=== PATIENT | female | born 2000 | race Caucasian/White ===

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

== ENCOUNTER 2020-05-03 03:06 | Emergency (ER) | payer BC ==
--- NOTE | 2020-05-03 04:45 | ED ---
Arrhythmia/Palpitations HPI - General Chief Complaint: Arrhythmia/Palpitations Stated Complaint: anxiety Time Seen by Provider: 05/03/20 03:23 Source: patient, family Mode of arrival: ambulatory Limitations: no limitations - History of Present Illness Initial Comments: Gricelda is a very pleasant 19-year-old female who comes to the ER with her mother today for evaluation of palpitations. Patient reports that on the night of the she was at a friend's house watching TV when she suddenly felt palpitations and began breathing really rapidly. She states that her hands became numb and tingly her abdomen began to cramp. She states she went home and she felt much better. She states that during the day she was doing well but this evening she woke up and felt like her heart was racing again and she was hyperventilating. Her mom decided to bring her to the ER. Mom states that she has a history of paroxysmal atrial fibrillation and wanted to make sure he wasn't having a dysrhythmia. 3 has no significant medical history no psychiatric history she states that she is home from college right now awaiting to find out if she'll be going back in t he fall. The report any significant social or emotional stressors aside from [place] virus stressing out everybody. She denies any drug use. Denies any possibility of . - Related Data Home Medications Medication Instructions Recorded Confirmed Budesonide/Formoterol Fumarate 2 puff INHALATION RT-DAILY 05/26/19 05/03/20 [Symbicort 160-4.5 Mcg Inhaler] Albuterol Sulfate [Ventolin HFA] 1 - 2 puff INHALATION RT-Q6H PRN 05/03/20 05/03/20 Ocella 1 tab PO HS 05/03/20 05/03/20 Allergies Allergy/AdvReac Type Severity Reaction Status Date / Time No Known Allergies Allergy Verified 05/03/20 06:43 Review of Systems ROS Statement: Those systems with pertinent positive or pertinent negative responses have been documented in the HPI. ROS Other: All systems not noted in ROS Statement are negative. Past Medical History Past Medical History: Asthma, Eye Disorder Additional Past Medical History / Comment(s): pt has history of asthma and uses advair diskus at home prn. has not used in 1 week. 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 no complications. pt has broken her growth plate on 2 separate occasions on rt leg casted only. 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 no complications. tolerated anesthesia w/o complications Past Anesthesia/Blood Transfusion Reactions: No Reported Reaction Past Psychological History: No Psychological Hx Reported Smoking Status: Never smoker Past Alcohol Use History: Occasional Past Drug Use History: None Reported - Past Family History Father Family Medical History: Diabetes Mellitus Additional Family Medical History / Comment(s): paternal grandmother and paternal uncles x 2 also have diabetes. paternal grandfather had lung cancer, maternal grandmother has hx of depression General Exam - General Exam Comments Initial Comments: Physical Exam GENERAL: Patient is well-developed and well-nourished. Patient is nontoxic and well- hydrated and is in no distress. HENT: Normocephalic, Atraumatic. EYES: PERRL, EOMI PULMONARY: Unlabored respirations. No audible rales rhonchi or wheezing was noted. CARDIOVASCULAR: There is a regular rate and rhythm without any murmurs gallops or rubs. ABDOMEN: Soft and nontender with normal bowel sounds. SKIN: Skin is clear with no lesions or rashes and otherwise unremarkable. : Deferred NEUROLOGIC: Patient is alert and oriented x3. Moving all extremities spontaneously MUSCULOSKELETAL: Normal extremities with adequate strength and full range of motion. No lower extremity swelling or edema. No calf tenderness. PSYCHIATRIC: Normal psychiatric evaluation. Limitations: no limitations Course Vital Signs 05/03/20 05/03/20 05/03/20 03:08 04:05 05:18 Temperature 98.1 F Pulse Rate 107 H 86 82 Respiratory 18 14 Rate Blood Pressure 150/87 O2 Sat by Pulse 98 Oximetry 05/03/20 06:23 Temperature 97.5 F L Pulse Rate 102 H Respiratory 14 Rate Blood Pressure 132/91 O2 Sat by Pulse 98 Oximetry EKG Findings - EKG Comments: EKG Findings:: EKG was obtained due to a complaint of palpitations, EKG was obtained at 3:27 AM, rate is 87 rhythm is sinus there is a normal axis, there are normal intervals, DE 134, QRS 84, QTC is 445 there are no acute ST elevation s or depressions no evidence of acute ischemia, infarction or arrhythmia. Medical Decision Making - Medical Decision Making The patient was seen and evaluated history is obtained from patient and mother Patient had episode of palpitations and hyperventilation yesterday sound like she had symptomatic hyperventilation with carpopedal spasms that resolved after calming herself down Patient reported a second episode today that was not as severe EKG at triage was normal sinus rhythm no acute findings Given mother's history and the patient's concern labs were obtained including a d-dimer TSH Labs resulted no abnormalities patient is rested comfortably throughout her stay in the emergency department is comfortable with plan for discharge home c ontinued outpatient follow-up - Lab Data Result diagrams: 05/03/20 05:17 05/03/20 05:17 Lab Results 05/03/20 05/03/20 05/03/20 Range/Units 05:17 05:17 05:17 WBC 9.3 (4.0-11.0) k/uL RBC 4.32 (3.80-5.40) m/uL Hgb 13.2 (11.4-16.0) gm/dL Hct 38.8 (34.0-46.0) % MCV 90.0 (80.0-100.0) fL MCH 30.6 (25.0-35.0) pg MCHC 34.0 (31.0-37.0) g/dL RDW 12.7 (11.5-15.5) % Plt Count 302 (150-450) k/uL Neutrophils % 69 % Lymphocytes % 21 % Monocytes % 5 % Eosinophils % 3 % Basophils % 1 % Neutrophils # 6.5 (1.3-7.7) k/uL Lymphocytes # 1.9 (1.0-4.8) k/uL Monocytes # 0.5 (0-1.0) k/uL Eosinophils # 0.3 (0-0.7) k/uL Basophils # 0.0 (0-0.2) k/uL D-Dimer 0.19 (<0.60) mg/L FEU Sodium 137 (137-145) mmol/L Potassium 3.5 (3.5-5.1) mmol/L Chloride 107 (98-107) mmol/L Carbon Dioxide 20 L (22-30) mmol/L Anion Gap 10 mmol/L BUN 6 L (7-17) mg/dL Creatinine 0.71 (0.52-1.04) mg/dL Est GFR (CKD-EPI)AfAm >90 (>60 ml/min/1.73 sqM) Est GFR (CKD-EPI)NonAf >90 (>60 ml/min/1.73 sqM) Glucose 101 H (74-99) mg/dL Calcium 9.3 (8.4-10.2) mg/dL Magnesium 1.8 (1.6-2.3) mg/dL Total Bilirubin 0.4 (0.2-1.3) mg/dL AST 18 (14-36) U/L ALT 9 (4-34) U/L Alkaline Phosphatase 75 (38-126) U/L Total Protein 6.7 (6.3-8.2) g/dL Albumin 3.7 (3.5-5.0) g/dL TSH 2.730 (0.465-4.680) mIU/L Urine HCG, Qual (Not Detectd) 05/03/20 Range/Units 05:18 WBC (4.0-11.0) k/uL RBC (3.80-5.40) m/uL Hgb (11.4-16.0) gm/dL Hct (34.0-46.0) % MCV (80.0-100.0) fL MCH (25.0-35.0) pg MCHC (31.0-37.0) g/dL RDW (11.5-15.5) % Plt Count (150-450) k/uL Neutrophils % % Lymphocytes % % Monocytes % % Eosinophils % % Basophils % % Neutrophils # (1.3-7.7) k/uL Lymphocytes # (1.0-4.8) k/uL Monocytes # (0-1.0) k/uL Eosinophils # (0-0.7) k/uL Basophils # (0-0.2) k/uL D-Dimer (<0.60) mg/L FEU Sodium (137-145) mmol/L Potassium (3.5-5.1) mmol/L Chloride (98-107) mmol/L Carbon Dioxide (22-30) mmol/L Anion Gap mmol/L BUN (7-17) mg/dL Creatinine (0.52-1.04) mg/dL Est GFR (CKD-EPI)AfAm (>60 ml/min/1.73 sqM) Est GFR (CKD-EPI)NonAf (>60 ml/min/1.73 sqM) Glucose (74-99) mg/dL Calcium (8.4-10.2) mg/dL Magnesium (1.6-2.3) mg/dL Total Bilirubin (0.2-1.3) mg/dL AST (14-36) U/L ALT (4-34) U/L Alkaline Phosphatase (38-126) U/L Total Protein (6.3-8.2) g/dL Albumin (3.5-5.0) g/dL TSH (0.465-4.680) mIU/L Urine HCG, Qual Not Detected (Not Detectd) Disposition Clinical Impression: Palpitations Disposition: HOME SELF-CARE Condition: Stable Instructions (If sedation given, give patient instructions): Heart Palpitations (ED) Is patient prescribed a controlled substance at d/c from ED?: No Referrals: Blair Padron MD [Primary Care Provider] - 1-2 days
[2020-05-03 05:18] VITALS: RESP 14
[2020-05-03 05:31] LABS: Basophils % (A) 1 %; Eosinophils # (A) 0.3 k/uL (0-0.7); Eosinophils % (A) 3 %; HCT 38.8 % (34.0-46.0); HGB 13.2 gm/dL (11.4-16.0); Lymphocytes # (A) 1.9 k/uL (1.0-4.8); Lymphocytes % (A) 21 %; MCH 30.6 pg (25.0-35.0); Mean Platelet Volume 7.1; Monocytes # (A) 0.5 k/uL (0-1.0); Monocytes % (A) 5 %; Neutrophils # (A) 6.5 k/uL (1.3-7.7); Neutrophils % (A) 69 %; Platelet Count 302 k/uL (150-450); RBC 4.32 m/uL (3.80-5.40); RDW 12.7 % (11.5-15.5); WBC 9.3 k/uL (4.0-11.0)
--- NOTE | 2020-05-03 05:32 | XR ---
EXAM: XR Chest, 2 Views CLINICAL HISTORY: ITS.REASON XR Reason: dysrhythmia TECHNIQUE: Frontal and lateral views of the chest. COMPARISON: No relevant prior studies available. FINDINGS: Lungs: No consolidation or mass. Pleural space: No effusion. Heart: No cardiomegaly. Bones/joints: No acute findings. IMPRESSION: No acute cardiopulmonary process.
[2020-05-03 06:30] VITALS: BP 132/91; PULSE 102; TEMP 97.5
[2020-05-03 06:34] LABS: ALT 9 U/L (4-34); AST 18 U/L (14-36); African American GFR (CKD) >90 (>60 ml/min/1.73 sqM); Albumin 3.7 g/dL (3.5-5.0); Alkaline Phosphatase 75 U/L (38-126); Anion Gap 10 mmol/L; Blood Urea Nitrogen 6 mg/dL (7-17); Calcium 9.3 mg/dL (8.4-10.2); Carbon Dioxide 20 mmol/L (22-30); Chloride 107 mmol/L (98-107); Glucose 101 mg/dL (74-99); Magnesium 1.8 mg/dL (1.6-2.3); Non-African American GFR(CKD) >90 (>60 ml/min/1.73 sqM); Potassium 3.5 mmol/L (3.5-5.1); Sodium 137 mmol/L (137-145); Total Bilirubin 0.4 mg/dL (0.2-1.3); Total Protein 6.7 g/dL (6.3-8.2)
== END 2020-05-03 07:20 | disposition home or self-care (01) ==
LOC: EC 03:06
DX: R00.2 Palpitations (principal); R06.4 Hyperventilation; J45.909 Unspecified asthma, uncomplicated; Z79.51 Long term (current) use of inhaled steroids
CPT/HCPCS: 36415; 71046; 80053; 81025; 83735; 84443; 85025; 85379; 93005; 99285